=== PATIENT | male | born 1945 | race Caucasian/White ===

== ENCOUNTER 2019-02-15 20:23 | Outpatient (REF) | payer MEDICARE, OTHER, SELFPAY ==
[2019-03-14 10:16] LABS: Fungus Smear No Fungi Seen
== END 2019-02-15 20:43 ==
LOC: LBN 20:23
PROVIDERS: PCP Family Medicine; Visit Provider Family Medicine
DX: B35.1 Tinea unguium (principal)
CPT/HCPCS: 87101; 87206

== ENCOUNTER 2020-01-10 01:37 | Outpatient (CLI) | payer MEDICARE, OTHER, SELFPAY ==
[2020-01-10 10:57] LABS: Hemoglobin A1C 5.4 % (<5.7)
== END 2020-01-10 01:57 ==
PROVIDERS: PCP Family Medicine; Visit Provider Family Medicine
DX: R73.9 Hyperglycemia, unspecified (principal)
CPT/HCPCS: 36415; 83036

== ENCOUNTER 2020-02-07 00:35 | Outpatient (CLI) | payer MEDICARE, OTHER, SELFPAY ==
--- NOTE | 2020-02-07 06:00 | DI.US_ITS ---
EXAM: US AAA SCREENING CLINICAL HISTORY: hx of tobacco abuse,z87.891,screening for aaa, risk factors COMPARISON: CT RENAL COLIC WO CONTRAST from 05/10/2013 FINDINGS: Abdominal Aorta: Proximal: 2.9 x 2.8 cm Mid: 2.1 x 2.4 cm Distal: 1.9 x 2.2 cm Iliac's: Right: 1.4 x 1.1 cm Left: 1.2 x 1.2 cm IMPRESSION: No evidence of abdominal aortic aneurysm. DATA REPOSITORY:
== END 2020-02-07 00:55 ==
PROVIDERS: PCP Family Medicine; Visit Provider Family Medicine
DX: Z87.891 Personal history of nicotine dependence (principal)
CPT/HCPCS: 76706

== ENCOUNTER 2021-03-20 03:15 | Outpatient (CLI) | payer MEDICARE, OTHER, SELFPAY ==
[2021-03-20 12:52] LABS: Calculated LDL 125 mg/dL (<100); Cholesterol 211 mg/dL (<200); Glucose 90 mg/dL (74-106); HDL Cholesterol 79 mg/dL (40-60); Triglyceride 37 mg/dL (<150)
== END 2021-03-20 03:16 | disposition home or self-care (01) ==
LOC: LBO 03:15
PROVIDERS: PCP Family Medicine; Visit Provider Family Medicine
DX: E78.5 Hyperlipidemia, unspecified (principal); R73.9 Hyperglycemia, unspecified
CPT/HCPCS: 36415; 80061; 82947

== ENCOUNTER 2024-02-07 02:12 | Outpatient (CLI) | payer MEDICARE, OTHER, SELFPAY ==
[2024-02-07 13:19] LABS: Vitamin B12 390 pg/mL (193-986)
== END 2024-02-07 02:13 | disposition home or self-care (01) ==
LOC: LOS 02:12
PROVIDERS: PCP Family Medicine; Visit Provider Family Medicine
DX: D64.9 Anemia, unspecified (principal); E03.9 Hypothyroidism, unspecified; G31.84 Mild cognitive impairment of uncertain or unknown etiology
CPT/HCPCS: 36415; 82607

== ENCOUNTER 2024-02-07 10:24 | Outpatient (CLI) | payer MEDICARE, OTHER, SELFPAY ==
[2024-02-07 12:54] LABS: TSH (W/Ref FT4) 0.63 uIU/mL (0.36-3.74)
[2024-02-08 09:44] LABS: Syphilis Serology (RPR) Negative (Negative)
== END 2024-02-07 10:25 | disposition home or self-care (01) ==
LOC: LOS 10:24
PROVIDERS: PCP Family Medicine; Referring Provider Family Medicine; Visit Provider Family Medicine
DX: R41.3 Other amnesia; G31.84 Mild cognitive impairment of uncertain or unknown etiology
CPT/HCPCS: 36415; 82607; 84443; 86592

== ENCOUNTER 2024-04-05 03:57 | Outpatient (CLI) | payer MEDICARE, OTHER, SELFPAY ==
[2024-04-05 13:31] LABS: Abs Immature Grans 0.03 10^3/uL (0.0-0.06); Absolute Basophil Count 0.04 10^3/uL (0.0-0.2); Absolute Eosinophil Count 0.08 10^3/uL (0.0-0.7); Absolute Lymphocyte Count 1.72 10^3/uL (1.2-3.4); Absolute Monocyte Count 0.53 10^3/uL (0.1-0.8); Basophils % 0.6 %; Eosinophils % 1.2 %; HCT 43.9 % (40.0-50.0); HGB 14.6 g/dL (13.5-17.5); Immature Grans % 0.4 %; Lymphocytes % 25.3 %; MCHC 33.3 % (32.0-36.0); MCV 87 fL (80-95); MPV 9.9 fL (8.0-11.0); Monocytes % 7.8 %; Neutrophils % 64.7 %; Platelet Count 202 10^3/uL (130-400); RBC 5.03 10^6/uL (4.36-5.78); RDW 12.8 % (11.8-14.1); RDW-SD 40.6 fL
[2024-04-05 14:39] LABS: ALT 31 U/L (16-63); AST 20 U/L (15-37); Albumin 3.9 g/dL (3.4-5.0); Alkaline Phosphatase 73 U/L (46-116); Anion Gap 6.8 mmol/L (3-11); BUN 17 mg/dL (7-18); Bilirubin, Total 0.72 mg/dL (0.2-1.0); CO2 31.2 mmol/L (21.0-32.0); CREATININE 1.2 mg/dL (0.70-1.30); Calcium 9.5 mg/dL (8.5-10.1); Chloride 108 mmol/L (98-107); Glucose 82 mg/dL (74-106); Potassium 4.5 mmol/L (3.5-5.1); Sodium 146 mmol/L (136-145); Total Protein 6.9 g/dL (6.4-8.2)
== END 2024-04-05 03:58 | disposition home or self-care (01) ==
PROVIDERS: PCP Family Medicine; Visit Provider Family Medicine
DX: D64.9 Anemia, unspecified (principal); R10.9 Unspecified abdominal pain
CPT/HCPCS: 36415; 80053; 85025

== ENCOUNTER 2024-10-09 10:26 | Outpatient (CLI) | payer MEDICARE, OTHER, SELFPAY ==
[2024-10-09 13:28] LABS: Vitamin B12 1059 pg/mL (193-986)
== END 2024-10-09 10:27 | disposition home or self-care (01) ==
PROVIDERS: PCP Family Medicine; Referring Provider Family Medicine; Visit Provider Family Medicine
DX: D64.9 Anemia, unspecified (principal)
CPT/HCPCS: 36415; 82607

== ENCOUNTER 2025-03-19 14:10 | Outpatient (CLI) | payer MEDICARE, OTHER, SELFPAY ==
[2025-03-19 16:28] LABS: Anion Gap 7.1 mmol/L (3-11); BUN 21 mg/dL (9-23); CO2 32.9 mmol/L (20.0-31.0); Calcium 9.3 mg/dL (8.3-10.6); Chloride 106 mmol/L (98-107); Glucose 100 mg/dL (74-106); Potassium 4.0 mmol/L (3.5-5.1); Sodium 146 mmol/L (136-145)
[2025-03-19 16:30] LABS: Vitamin B12 746 pg/mL (211-911)
== END 2025-03-19 14:11 | disposition home or self-care (01) ==
LOC: LBO 14:11
PROVIDERS: PCP Family Medicine; Visit Provider Family Medicine
DX: E87.1 Hypo-osmolality and hyponatremia (principal); D64.9 Anemia, unspecified
CPT/HCPCS: 36415; 80048; 82607